=== PATIENT | female | born 1980 | race Caucasian/White ===

== ENCOUNTER 2024-05-25 12:06 | Emergency (ER) | payer OTHER, SELFPAY ==
[2024-05-25 12:16] VITALS: BP 104/57
[2024-05-25 12:57] LABS: % Basophils 0.4 % (0-2); % Eosinophils 0.3 % (0-6); % Immature Granulocytes 0.4 % (0-0.5); % Monocytes 9.4 % (1.7-9.3); % Neutrophils 80.5 % (42.2-75.2); Absolute Basophils 0.1 10^3/uL (0-0.2); Absolute Immature Granulocytes 0.1 10^3/uL (0-0.05); Absolute Lymphocytes 1.1 10^3/uL (1.2-3.4); Absolute Monocytes 1.1 10^3/uL (0.1-0.6); Absolute Neutrophils 9.5 10^3/uL (1.4-6.5); Hematocrit 30.4 % (37.0-47.0); Hemoglobin 10.3 g/dL (12.0-16.0); Mean Corp Hgb Conc. 33.9 g/dL (33.0-37.0); Mean Corpuscular Hgb 29.2 pg (27.0-31.0); Mean Corpuscular Volume 86.1 fL (81.0-99.0); Mean Platelet Volume 9.7 fL (7.4-10.4); Nucleated Red Blood Cells % 0 %; Platelet Count 263 10^3/uL (130-400); Red Blood Cell Count 3.53 10^6/uL (4.20-5.40); Red Cell Dist. Width 12.6 % (11.5-14.5); White Blood Cell Count 11.8 10^3/uL (4.8-10.8)
[2024-05-25 13:21] LABS: Urine Albumin 1+ (Neg - Trace); Urine Bilirubin Negative (Negative); Urine Character Clear (Clear); Urine Color Yellow; Urine Glucose Negative (Negative); Urine Ketone 3+ (Negative); Urine Leukocyte Trace (Negative); Urine Nitrite Negative (Negative); Urine Occult Blood Negative (Negative); Urine Specific Gravity 1.015 (<1.030); Urine Urobilinogen Negative (Neg - 1+)
[2024-05-25 13:23] LABS: ALT (SGPT) 31 U/L (0-35); AST (SGOT) 32 U/L (14-36); Albumin 3.8 g/dl (3.5-5.0); Alkaline Phosphatase 60 U/L (38-126); Blood Urea Nitrogen 10 mg/dl (7-17); Calcium 8.2 mg/dl (8.4-10.2); Carbon Dioxide 23 mmol/L (22-30); Chloride 98 mmol/L (98-107); Glucose 108 mg/dl (70-99); Lipase 36 U/L (23-300); Potassium 3.9 mmol/L (3.5-5.1); Sodium 131 mmol/L (135-145); Total Bilirubin 1.8 mg/dl (0.2-1.3); Total Protein 6.2 g/dl (6.3-8.2); eGFR > 60.00
[2024-05-25 13:58] LABS: HCG, Serum Qualitative Screen Negative
[2024-05-25 13:59] LABS: Urine Squamous Cell 0-2 /LPF (Few)
[2024-05-25 14:00] LABS: Urine Urothelial Cell 0-2 /LPF (FEW)
[2024-05-25 14:01] LABS: Urine Red Blood Cell 0-2 /HPF (0-2)
[2024-05-25 14:03] LABS: Urine Bacteria Many (Negative); Urine White Cell 30-40 /HPF (0-5)
--- NOTE | 2024-05-25 14:49 | ED.GENMED ---
History of Present Illness
General
Chief Complaint: Flank Pain
Source: patient
Time Seen by Provider: 05/25/24 14:00
History of Present Illness
History of Present Illness:
43-year-old female with past medical history of hypothyroidism presenting to the ER for evaluation with EMS after she started with sudden onset left flank pain around 10:45 AM this morning accompanied with nausea and stating that it hurt to even
breathe or move secondary to the pain with all of these symptoms improving following some fluids and Toradol she received via EMS. Patient otherwise denies any other symptoms including vomiting, bowel changes, urinary symptoms, chest pain or
shortness of breath. Denies any recent illnesses. She does note currently on her menstrual period but this is not giving her any significant pain or complications. She denies any history of similar type pain. No other concerns presently.
Past History
Past History
ED Past Medical History: Hypothyroidism
ED Past Surgical History:
Social History
Tobacco: Non-smoker
Alcohol: Occasional
Drug: None
Personal:
Living: with family
Review of Systems
Review of Systems
All Other Systems: ROS reviewed and negative except as documented in HPI and ROS
Phy Exam
Physical Exam
Physical Exam:
GENERAL: Alert , in no apparent distress but still does appear slightly uncomfortable
EYE: clear conjunctiva b/l
HEAD: NCAT
ENT: mmm.
CARDIAC: Regular rate and rhythm .
LUNGS: Clear breath sounds bilaterally, no acute respiratory distress, no wheezes/rales/rhonchi
ABDOMEN: Soft, without focal tenderness, no r/g, mild left CVA tenderness
NEUROLOGICAL: Alert and oriented
SKIN: Warm and dry, skin intact.
MUSCULOSKELETAL: well perfused.
PSYCH: Normal and appropriate interaction.
Scores
Heart Failure Risk
Heart Failure Risk Score: Not Applicable
Heart Score for Chest Pain Patients
STEMI patient?: Not applicable
Withdrawal Assessment of Alcohol
Withdrawal Assessment Completed?: Not applicable
Sepsis
Sepsis Screening
Sepsis Assessment: Sepsis Ruled Out
Sepsis Screen
Sepsis Screen: Sepsis Ruled Out
Date: 05/25/24
Time: 16:17
Course
Orders/Labs/Results
Orders:
Orders
05/25/24 12:22
EKG [Electrocardiogram (*1)] Urgent
Reason for Study: Abdominal Pain
Test Result ONCE
05/25/24 12:23
EKG- Treatment ONCE
05/25/24 12:30
CT Abd/pelvis Wo Iv Cont Urgent
Comment:
Reason For Exam: L flank pain, fever
05/25/24 12:31
Complete Blood Count/With Diff Urgent
Comprehensive Metabolic Panel Urgent
HCG, Serum Qualitative Screen Urgent
Lipase Urgent
05/25/24 12:37
Urinalysis Reflex To Culture Urgent
Date Specimen was Collected: 05/25/24
Time Specimen was Collected: 12:22
Urine Microscopic Reflex Cult Urgent
Urine Culture Urgent
AVIVA Source: U
Specimen Description:
Date Specimen was Collected: 05/25/24
Time Specimen was Collected: 12:22
Abnormal Lab Results
05/25/24 05/25/24
12:31 12:37
WBC 11.8 H 10^3/uL
(4.8-10.8)
RBC 3.53 L 10^6/uL
(4.20-5.40)
Hgb 10.3 L g/dL
(12.0-16.0)
Hct 30.4 L %
(37.0-47.0)
Abs Immat Gran (auto) 0.1 H 10^3/uL
(0-0.05)
Absolute Neuts (auto) 9.5 H 10^3/uL
(1.4-6.5)
Absolute Lymphs (auto) 1.1 L 10^3/uL
(1.2-3.4)
Absolute Monos (auto) 1.1 H 10^3/uL
(0.1-0.6)
Neutrophils % 80.5 H %
(42.2-75.2)
Lymphocytes % 9.0 L %
(20.5-51.1)
Monocytes % 9.4 H %
(1.7-9.3)
Sodium 131 L mmol/L
(135-145)
Glucose 108 H mg/dl
(70-99)
Calcium 8.2 L mg/dl
(8.4-10.2)
Total Bilirubin 1.8 H mg/dl
(0.2-1.3)
Total Protein 6.2 L g/dl
(6.3-8.2)
Urine Ketones 3+ A
(Negative)
Leukocyte Esterase Rfl Trace A
(Negative)
Urine WBC (Reflex) 30-40 A /HPF
(0-5)
Urine Bacteria (Reflex) Many A
(Negative)
Urine Albumin (Reflex) 1+ A
(Neg - Trace)
05/25/24 12:31
05/25/24 12:31
Vital Signs
Initial and Last Documented VS:
Initial Vital Signs
Temp Pulse Resp BP Pulse Ox
100.4 F H 103 20 104/57 98
05/25/24 12:16 05/25/24 12:16 05/25/24 12:16 05/25/24 12:16 05/25/24 12:16
Last Documented Vital Signs
Temp Pulse Resp BP Pulse Ox
100.4 F H 100 18 106/60 98
05/25/24 12:16 05/25/24 15:36 05/25/24 15:36 05/25/24 15:36 05/25/24 15:36
MDM/Problems Addressed
Differential Diagnosis Includes:
renal/ureteral colic, pyelonephritis, musculoskeletal back pain, ? pneumonia or other lung pathology although other than fever is not having any URI like symptoms
MDM/Problems Addressed:
43 year old female presented to the ER for evaluation of sudden onset left-sided back pain around 10:45 AM accompanied with some nausea but no vomiting. She noted feeling feverish earlier today and patient does have a fever of 100.4 here. Left
flank pain is improving. No other URI-like symptoms. Patient without any urinary symptoms. Currently on her menstrual period appears somewhat uncomfortable and has some left-sided CVA tenderness. Given the sudden onset nature clinical concern
for possible renal/ureteral colic. Pyelonephritis also considered given. Labs, urine and CT imaging ordered. Patient declining anything further for symptoms.
*Radiology
Radiology exam reviewed: radiology read reviewed
*Pulse Oximetry
Patient hypoxic: no
*Critical Care Note
Total Time (30-74mins, 75-104mins- exclusive of procedures): Not Applicable
Patient Management
Escalation/DeEscalation of care consider admission/obs:
Patient CT scan shows a left lower lobe pneumonia. There is also increased stool throughout the colon. I do suspect that the pneumonia findings given the patient's location of her pain combined with her fever and elevated white blood cell count is
the likely cause for her symptoms. Patient's urine also shows 30-40 WBCs per high-power field. There could be some contamination given bacteria however will cover for both lung and urine pathology with Augmentin. Patient advised on return
precautions to the emergency department. Stable for discharge home.
ED Attending Note
-
Portions of this chart may have been created with voice recognition software.� Occasional wrong word or��sound alike� substitutions may have occurred due to the inherent limitations of voice recognition software.
Discharge Plan
Departure
Patient Disposition: Home (Routine Discharge)
Date of Disposition: 05/25/24
Time of Disposition: 15:26
Patient with high blood pressure during this ER visit?: No
Discharge Problem:
Pneumonia, UTI (urinary tract infection)
Instructions: Pneumonia in adults - Discharge instructions
Prescriptions:
New
amoxicillin-pot clavulanate 875-125 mg tablet
1 tab PO BID 10 Days Qty: 20 0RF
Referrals:
Iam Davis MD [Family Provider] -
Interventions
Interventions:
*Risk Screen - Suicide Last Done: 05/25/24 12:16
*General Assessment Last Done: 05/25/24 14:12
*Neglect/Abuse Screening Last Done: 05/25/24 15:36
*ED COVID-19 Vaccine History Last Done: 05/25/24 14:12
*Nursing Disposition Last Done: 05/25/24 15:36
WT-Mswtix-Ltuzkevuon Assessment Last Done: 05/25/24 14:12
ED-Female Genitourinary Assessment Last Done: 05/25/24 14:12
Discharge Date and Time
Discharge Date/Time: 05/25/24 15:38
Print Language: YI
[2024-05-25 15:36] VITALS: BP 106/60
== END 2024-05-25 15:38 | disposition home or self-care (01) ==
LOC: EMR 12:06
PROVIDERS: Emergency Medicine; EMERGENCY PHYSICIAN Emergency Medicine; FAMILY PHYSICIAN Internal Medicine
DX: E03.9 Hypothyroidism, unspecified (principal); J18.9 Pneumonia, unspecified organism; N39.0 Urinary tract infection, site not specified
CPT/HCPCS: 99285; 74176; 80053; 81003; 81015; 83690; 84703; 85025; 87086; 93005

== ENCOUNTER → 2024-07-08 08:26 | Outpatient (REF) | payer OTHER, SELFPAY | LOC: HWRAD 08:26 | PROVIDERS: ATTENDING PHYSICIAN Internal Medicine | DX: J18.9 Pneumonia, unspecified organism (principal) | CPT/HCPCS: 71046 ==